=== PATIENT | female | born 1970 | race Caucasian/White ===

== ENCOUNTER → 2023-10-27 08:53 | Outpatient (REF) | payer BC, SELFPAY | LOC: WDC 08:53 | PROVIDERS: ATTENDING PHYSICIAN Obstetrics & Gynecology; FAMILY PHYSICIAN Nurse Practitioner | DX: Z12.31 Encounter for screening mammogram for malignant neoplasm of breast (principal) | CPT/HCPCS: 77063; 77067 ==

== ENCOUNTER → 2024-10-28 07:50 | Outpatient (REF) | payer BC, SELFPAY | LOC: WDC 07:50 | PROVIDERS: ATTENDING PHYSICIAN Nurse Practitioner | DX: Z12.31 Encounter for screening mammogram for malignant neoplasm of breast (principal) | CPT/HCPCS: 77063; 77067 ==

== ENCOUNTER 2024-12-31 15:19 | Emergency (ER) | payer BC, SELFPAY ==
[2024-12-31 15:25] VITALS: BP 152/93
[2024-12-31 15:50] LABS: % Basophils 0.3 % (0-2); % Eosinophils 0.5 % (0-6); % Immature Granulocytes 0.3 % (0-0.5); % Lymphocytes 16.1 % (20.5-51.1); % Monocytes 6.1 % (1.7-9.3); % Neutrophils 76.7 % (42.2-75.2); Absolute Lymphocytes 1.2 10^3/uL (1.2-3.4); Absolute Monocytes 0.5 10^3/uL (0.1-0.6); Absolute Neutrophils 5.9 10^3/uL (1.4-6.5); Hematocrit 36.3 % (37.0-47.0); Hemoglobin 11.8 g/dL (12.0-16.0); Mean Corp Hgb Conc. 32.5 g/dL (33.0-37.0); Mean Corpuscular Hgb 20.3 pg (27.0-31.0); Mean Corpuscular Volume 62.4 fL (81.0-99.0); Nucleated Red Blood Cells % 0 %; Platelet Count 272 10^3/uL (130-400); Red Blood Cell Count 5.82 10^6/uL (4.20-5.40); Red Cell Dist. Width 15.9 % (11.5-14.5); White Blood Cell Count 7.7 10^3/uL (4.8-10.8)
[2024-12-31 16:08] LABS: ALT (SGPT) 28 U/L (0-35); AST (SGOT) 30 U/L (14-36); Albumin 4.9 g/dl (3.5-5.0); Alkaline Phosphatase 70 U/L (38-126); Blood Urea Nitrogen 12 mg/dl (7-17); Calcium 10.3 mg/dl (8.4-10.2); Carbon Dioxide 22 mmol/L (22-30); Chloride 107 mmol/L (98-107); Glucose 128 mg/dl (70-99); Lipase 37 U/L (23-300); Sodium 138 mmol/L (135-145); Total Bilirubin 1.2 mg/dl (0.2-1.3); Total Protein 7.5 g/dl (6.3-8.2); eGFR > 60.00
[2024-12-31 18:21] VITALS: BP 155/77
[2024-12-31 18:26] VITALS: BP 155/77; BMI 25.5
[2024-12-31] MEDS: NSS 1000 IV (18:39)
[2024-12-31] MEDS: ZOFRAN 4 MG IV (18:39)
[2024-12-31 19:00] VITALS: BP 142/78
--- NOTE | 2024-12-31 19:33 | ED.GENMED ---
History of Present Illness
General
Chief Complaint: Abdominal Symptoms
Time Seen by Provider: 12/31/24 18:03
History of Present Illness
History of Present Illness:
54-year-old female without significant past medical history presenting to the emergency department for nausea, vomiting, diarrhea. Patient reports symptoms started acutely around noon. Denies any preceding factors. Notes that she was outside
earlier today, drank some coffee, did not drink very much water. Denies eating anything abnormal that may have contributed to symptoms. Does report a similar episode about 3 months ago when she was in [facility]. Symptoms lasted less than 24 hours.
Denies any associate abdominal pain. Denies chest pain or difficulty breathing. Does report onset of symptoms was having tingling to her hands and her feet. Denies any known sick contacts. Denies any fever. Denies additional medical complaints,
notes that her symptoms have improved and is currently asymptomatic.
Phy Exam
Physical Exam
Physical Exam:
General: Well-appearing, no clinical signs of dehydration, nontoxic and in no acute distress
HEENT: protecting airway
Neck: appears supple
CV: Normal heart rate, regular rhythm, no evidence of cyanosis
Resp: No accessory muscle use, no increased work of breathing, lungs clear to auscultation bilaterally
Abd: Soft and non-distended, no tenderness to palpation
Extremities: No deformities, no swelling
Neuro: alert, no focal neurologic deficit
: deferred
Rectal: deferred
Psych: Normal affect
Skin: Intact
Course
Orders/Labs/Results
Orders:
Orders
12/31/24 15:35
Complete Blood Count/With Diff Urgent
Comprehensive Metabolic Panel Urgent
Lipase Urgent
12/31/24 18:29
0.9% Sodium Chloride 1000 ml [Nss] 1,000 ml IV BOLUS
Ondansetron Injectable [Zofran] 4 mg IV NOW STA
Abnormal Lab Results
12/31/24
15:35
RBC 5.82 H 10^6/uL
(4.20-5.40)
Hgb 11.8 L g/dL
(12.0-16.0)
Hct 36.3 L %
(37.0-47.0)
MCV 62.4 L fL
(81.0-99.0)
MCH 20.3 L pg
(27.0-31.0)
MCHC 32.5 L g/dL
(33.0-37.0)
RDW 15.9 H %
(11.5-14.5)
Neutrophils % 76.7 H %
(42.2-75.2)
Lymphocytes % 16.1 L %
(20.5-51.1)
Glucose 128 H mg/dl
(70-99)
Calcium 10.3 H mg/dl
(8.4-10.2)
12/31/24 15:35
12/31/24 15:35
Vital Signs
Initial and Last Documented VS:
Initial Vital Signs
Temp Pulse Resp BP Pulse Ox
97.5 F 86 16 152/93 100
12/31/24 15:25 12/31/24 15:25 12/31/24 15:25 12/31/24 15:25 12/31/24 15:25
Last Documented Vital Signs
Temp Pulse Resp BP Pulse Ox
97.6 F 86 16 155/77 99
12/31/24 18:26 12/31/24 18:26 12/31/24 18:26 12/31/24 18:26 12/31/24 19:35
MDM/Problems Addressed
MDM/Problems Addressed:
54-year-old female without significant past medical history presenting for nausea, vomiting, diarrhea. Vital signs on arrival are for mild hypertension.
On exam, patient is well-appearing, no acute distress or discomfort. Notes she is currently feeling better, denies any significant nausea. No tenderness to the abdomen without concern for serious intra-abdominal process or infection. Ultimately
suspect a viral gastroenteritis. Screening laboratory analysis sent, unremarkable. Will treat with IV fluids and Zofran and reassess.
19:40 - Patient tolerated p.o. without difficulty, continues to feel improved. Feel stable for discharge with close and follow-up with her doctor. Return precautions discussed and patient verbalized understanding
*Pulse Oximetry
SaO2: 99
Oxygen Mode of Delivery: Room air
*Critical Care Note
Total Time (30-74mins, 75-104mins- exclusive of procedures): Not Applicable
ED Attending Note
-
Portions of this chart may have been created with voice recognition software.� Occasional wrong word or��sound alike� substitutions may have occurred due to the inherent limitations of voice recognition software.
Discharge Plan
Departure
Prescriptions:
No Action
No Current Medications
0
Referrals:
Annie Negrete CRNP [Family Provider, Family Practice]
Interventions
Interventions:
*Risk Screen - Suicide Last Done: 12/31/24 15:25
*General Assessment Last Done: 12/31/24 18:26
*Neglect/Abuse Screening Last Done: 12/31/24 18:26
*ED- Fall Risk Assessment Last Done: 12/31/24 18:26
*ED COVID-19 Vaccine History Last Done: 12/31/24 18:26
FN-Rahowv-Hczqkjedkk Assessment Last Done: 12/31/24 18:26
Discharge Date and Time
Print Language: ESTONIAN
[2024-12-31 19:59] VITALS: BP 138/78
== END 2024-12-31 20:00 | disposition home or self-care (01) ==
LOC: EMR 15:19
PROVIDERS: EMERGENCY PHYSICIAN Student in an Organized Health Care Education/Training Program; FAMILY PHYSICIAN Nurse Practitioner
DX: A08.4 Viral intestinal infection, unspecified (principal); R03.0 Elevated blood-pressure reading, without diagnosis of hypertension
CPT/HCPCS: 99284; 96374; 96361; 80053; 83690; 85025